=== PATIENT | female | born 1985 | race Caucasian/White ===

== ENCOUNTER 2019-04-03 21:56 | Emergency (ER) | payer OTHER, MEDICAID, SELFPAY ==
[2019-04-03 22:00] VITALS: BP 109/54; PULSE 78; RESP 15; TEMP 36.8; O2SAT 100; BMI 23.8
--- NOTE | 2019-04-03 22:20 | PC.NURSE ---
pt has menses at this time
[2019-04-03 22:23] LABS: Appearance Urine UA TURBID; Bilirubin Urine UA NEGATIVE (NEGATIVE); Color Urine UA RED; Glucose Urine UA NEGATIVE (Negative); Ketones Urine UA NEGATIVE (NEGATIVE); Leukocyte Esterase Urine UA 2+ (NEGATIVE); Nitrite Urine UA NEGATIVE (Negative); Occult Blood Urine UA 3+ (Negative); Protein Urine UA 2+ (Negative); Urobilinogen Urine UA 0.2 E.U./dL (0.2); pH Urine UA 6.5 (4.5-8.0)
--- NOTE | 2019-04-03 22:23 | ED_ITS ---
HPI - Female Genitourinary General Chief complaint: Urogenital-Female Stated complaint: LOWER RIGHT SIDED ABD PAIN Time Seen by Provider: 04/03/19 22:19 Source: patient Limitations: no limitations History of Present Illness HPI Narrative: The patient developed right lower abdominal pain about 6:00 p.m. tonight. She has urinary frequency. She denies dysuria. She had frequency about 5 days ago but symptoms resolved. She does not have frequent UTIs. She is currently on her menstrual cycle. is unlikely. She is status post right oophorectomy due to torsion at the age of 20. She has had 4 children since then, three by C-sections with a tubal ligation after the most recent C- section. She last ate at 6:00 p.m. without nausea vomiting. Her bowel movements have been normal. She has no history of kidney stones. Related Data Previous Rx's Medication Instructions Recorded sulfamethoxazole-trimethoprim 1 tab PO BID 7 Days #14 tab 04/04/19 [Bactrim DS] Allergies Allergy/AdvReac Type Severity Reaction Status Date / Time morphine Allergy Verified 04/03/19 22:06 Review of Systems Cardiovascular Denies chest pain Respiratory Denies cough Gastrointestinal Gastrointestinal: Reports abdominal pain, Denies diarrhea, Denies nausea and Denies vomiting Genitourinary Denies dysuria and Reports urinary urgency Comments: Menstrual bleeding Musculoskeletal Denies back pain Integumentary/Breasts Denies rash [facility] Medical History (Updated 04/04/19 @ 00:59 by Mandeep Walton MD) No active medical problems (Acute) Surgical History (Updated 04/04/19 @ 00:55 by Mandeep Walton MD) H/O tubal ligation (Acute) History of right oophorectomy (Acute) Previous section (Acute) Social History Smoking Status: Unknown if ever smoked Social History Smoking Status: Unknown if ever smoked Exam Initial Vital Signs Initial Vital Signs: Vital Signs Temperature 98.2 F 04/03/19 22:00 Pulse Rate 78 04/03/19 22:00 Respiratory Rate 15 04/03/19 22:00 Blood Pressure 109/54 L 04/03/19 22:00 Pulse Oximetry 100 04/03/19 22:00 Const General: cooperative and well developed Nutritional Appearance: well nourished Orientation: alert, awake and oriented x3 Resp Auscultation: clear to auscultation bilaterally Cardio Rhythm: regular rhythm Heart Sounds: S1 normal, S2 normal and no murmurs GI Inspection: normal to inspection Other: Palpable right lower quadrant tenderness with guarding but no rebound. Suprapubic tenderness with mild guarding, no rebound. Negative heel tap. Back/Spine/Pelvis Back: No CVA tenderness Skin General: no rashes or lesions noted Neuro General: alert, oriented x3, gait normal and no focal motor deficits Speech: speech normal Course Course Narrative: CT reveals no evidence of appendicitis, but does reveal findings consistent with cystitis. The is C/W hemorrhagic cystitis. Her pain is resolved with Toradol. She was given a dose of IV Rocephin prior to discharge. Orders Ordered: ED Orders 04/03/19 22:02 Urinalysis and Microscopic Stat Urine Culture Stat 04/03/19 22:54 CT abdomen pelvis w con Stat 04/03/19 23:16 Complete Blood Count AUTO DIFF Stat Comprehensive Metabolic Panel Stat Lipase Stat Discontinued Medications Sodium Chloride (Normal Saline 0.9%) 1,000 mls @ 250 mls/hr IV CONT NATHAN Last Infusion: 04/04/19 01:10 Dose: 0 mls/hr Admin: 04/03/19 23:12 Dose: 250 mls/hr Ceftriaxone Sodium/Dextrose (Rocephin) 1 gm in 50 mls @ 100 mls/hr IV NOW ONE Stop: 04/04/19 01:18 Last Infusion: 04/04/19 01:57 Dose: 0 mls/hr Admin: 04/04/19 01:09 Dose: 100 mls/hr Ketorolac Tromethamine (Toradol) 30 mg IV NOW ONE Stop: 04/03/19 22:54 Last Admin: 04/03/19 23:12 Dose: 30 mg Vital Signs - 8 hr 04/03/19 22:00 04/03/19 23:39 04/04/19 01:25 Temperature 98.2 F 98.1 F Pulse Rate 78 67 62 Respiratory Rate 15 15 20 Blood Pressure 109/54 L Blood Pressure [Left Arm] 87/53 L 89/54 L Pulse Oximetry 100 99 99 MDM - Female Genitourinary Lab Data Result diagrams: 04/03/19 23:16 04/03/19 23:16 Lab Results 04/03/19 04/03/19 04/03/19 Range/Units 22:02 23:16 23:16 WBC 9.9 (4.5-11.0) X10^3/uL RBC 4.38 (4.0-5.2) X10^6/uL Hgb 12.8 (12.0-16.0) g/dL Hct 38.5 (36-46) % MCV 87.7 (80-100) fL MCH 29.2 (26-34) PG MCHC 33.2 (30-36) % RDW 13.9 (11.6-14.8) % Plt Count 273 (150-400) X10^3/uL Neut % (Auto) 66.0 (50-75) % Lymph % (Auto) 19.0 L (25-40) % [place] % (Auto) 8.1 (3-14) % Eos % (Auto) 6.4 H (2-4) % Baso % (Auto) 0.5 (0-2) % Neut # (Auto) 6500 (5626-5932) /uL Lymph # (Auto) 1900 (2754-6831) /uL [place] # (Auto) 800 (0-900) /uL Eos # (Auto) 600 H (0-450) /uL Baso # (Auto) 0 (0-100) /uL Sodium 138 (137-145) mmol/L Potassium 4.0 (3.4-5.1) mmol/L Chloride 104 (98-107) mmol/L Carbon Dioxide 27 (22-32) mmol/L BUN 16 (7-17) mg/dL Creatinine 0.50 L (0.52-1.04) mg/dL Estimated GFR > 60.0 (>60) mL/min BUN/Creatinine Ratio 32.0 H (6-22) Glucose 98 (70-100) mg/dL Calcium 8.6 (8.4-10.2) mg/dL Total Bilirubin 0.3 (0.2-1.3) mg/dL AST 17 (14-36) IU/L ALT < 6 L (9-52) IU/L Alkaline Phosphatase 66 (38-126) U/L Total Protein 6.7 (6.3-8.2) g/dL Albumin 3.7 (3.5-5.0) g/dL Globulin 3.0 (1.7-4.1) g/dL Albumin/Globulin Ratio 1.2 (1.0-2.8) Lipase 59 (23-300) U/L Urine Color Red Urine Appearance Turbid Urine pH 6.5 (4.5-8.0) Ur Specific [place] 1.020 (1.000-1.035) Urine Protein 2+ H (Negative) Urine Glucose (UA) Negative (Negative) g/dL Urine Ketones Negative (NEGATIVE) Urine Occult Blood 3+ H (Negative) Urine Nitrate Negative (Negative) Urine Bilirubin Negative (NEGATIVE) Urine Urobilinogen 0.2 (0.2) E.U./dL Ur Leukocyte Esterase 2+ H (NEGATIVE) Urine RBC >100/hpf H (0-5/HPF) Urine WBC 5-10/hpf H (0-5/HPF) Ur Squamous Epith Cells 0-1 /hpf (0-5/HPF) Urine Bacteria Few (2-10) H (None) Ur Culture Indicated? Specimen cultured Point of Care Testing Test Results Negative Imaging Data CT scan - abdomen: Radiologist's impression: No evidence of appendicitis. Findings consistent with cystitis. Discharge Plan Departure Patient Disposition: Home Clinical Impression: Acute hemorrhagic cystitis Discharge Date/Time: 04/04/19 01:35 Interventions: ED Discharge Assessment Last Done: 04/04/19 01:34 Instructions: DI for Urinary Tract Infection (UTI) Activity Restrictions/Additional Instructions: Drink plenty of water, Assure you remain well hydrated. Bactrim DS 2 times daily as prescribed for 7 days. Return the ER if you develop increasing pain, vomiting, or fever. Prescriptions: New sulfamethoxazole-trimethoprim [Bactrim DS] 800-160 mg tablet 1 tab PO BID 7 Days Qty: 14 RF: 0
[2019-04-03 22:26] LABS: Bacteria Urine Few (2-10); Culture Indicated Urine Specimen Cultured; RBC Urine >100/HPF (0-5/HPF); Squamous Epithelial Cell Urine 0-1 /HPF (0-5/HPF); WBC Urine 5-10/HPF (0-5/HPF)
--- NOTE | 2019-04-03 22:54 | DI.CT.S_ITS ---
PROCEDURE: CT ABDOMEN PELVIS W CON INDICATIONS: Right lower quadrant pain, post right oophorectomy TECHNIQUE: After the administration of intravenous contrast, 5 mm thick sections acquired from the diaphragm to the symphysis. 5 mm coronal and sagittal reformats were acquired. For radiation dose reduction, the following was used: automated exposure control, adjustment of mA and/or kV according to patient size. COMPARISON: None. FINDINGS: Image quality: Excellent. ABDOMEN: Lung bases: Lung bases are clear. Heart size is normal. Solid organs: Liver is normal in size and enhancement. Gallbladder is decompressed but otherwise unremarkable. Biliary system is non dilated. Pancreas enhances normally. Spleen is normal in size and enhancement. No adrenal nodules. Kidneys demonstrate normal size and enhancement, without hydronephrosis. Peritoneum and bowel: Bowel loops demonstrate normal wall thickness and caliber. No free fluid or air. The visualized appendix appears normal. Nodes and vessels: No retroperitoneal or mesenteric adenopathy by size criteria. Aorta and inferior vena cava are normal in size. Miscellaneous: No ventral hernias. PELVIS: Genitourinary: Bladder wall is mildly thickened, possibly related to incomplete distention. No perivesicular stranding. Reproductive organs unremarkable as visualized. Miscellaneous: No inguinal hernias or adenopathy. Bones: No suspicious bony lesions. No acute vertebral body compression fractures. IMPRESSION: Mild circumferential thickening of the urinary bladder which may be in part due to incomplete distention. However, cystitis may have a similar appearance. Recommend clinical correlation. Otherwise, no acute abnormalities identified in the abdomen or pelvis. No significant discrepancy with the shift stacker radiology preliminary report. Dictated by: Isaias Harper M.D. on 04/04/2019 at 9:16 Approved by: Isaias Harper M.D. on 04/04/2019 at 9:22
[2019-04-03] MEDS: SODIUM CHLORIDE 0.9% 1,000 ML 250 ML IV (23:12)
[2019-04-03] MEDS: KETOROLAC 60 MG/2 ML VIAL 30 MG IV (23:12)
[2019-04-03 23:25] LABS: Add Manual Diff / Slide Review NO; Basophils Absolute Auto 0 /uL (0-100); Basophils Percent Auto 0.5 % (0-2); Eosinophils Absolute Auto 600 /uL (0-450); Eosinophils Percent Auto 6.4 % (2-4); Hematocrit 38.5 % (36-46); Hemoglobin 12.8 g/dL (12.0-16.0); Lymphocytes Absolute Auto 1900 /uL (1100-4500); Mean Corpuscular HGB Conc 33.2 % (30-36); Mean Corpuscular Hemoglobin 29.2 PG (26-34); Mean Corpuscular Volume 87.7 fL (80-100); Monocytes Absolute Auto 800 /uL (0-900); Monocytes Percent Auto 8.1 % (3-14); Neutrophils Absolute Auto 6500 /uL (1500-7000); Platelet Count 273 X10^3/uL (150-400); Red Blood Cell Count 4.38 X10^6/uL (4.0-5.2); Red Cell Distribution Width 13.9 % (11.6-14.8); White Blood Cell Count 9.9 X10^3/uL (4.5-11.0)
[2019-04-03 23:35] LABS: Albumin 3.7 g/dL (3.5-5.0); Albumin Globulin Ratio 1.2 (1.0-2.8); Alkaline Phosphatase 66 U/L (38-126); Aspartate Aminotransferase 17 IU/L (14-36); Bilirubin Total 0.3 mg/dL (0.2-1.3); Blood Urea Nitrogen 16 mg/dL (7-17); Calcium 8.6 mg/dL (8.4-10.2); Carbon Dioxide 27 mmol/L (22-32); Chloride 104 mmol/L (98-107); Estimated Glomerular Filt Rate > 60.0 mL/min (>60); Glucose 98 mg/dL (70-100); HEMOLYSIS 49 (0-50); Lipase 59 U/L (23-300); Sodium 138 mmol/L (137-145); Total Protein 6.7 g/dL (6.3-8.2)
[2019-04-03 23:39] VITALS: BP 87/53; PULSE 67; RESP 15; O2SAT 99
[2019-04-03 23:40] LABS: Alanine Aminotransferase < 6 IU/L (9-52)
[2019-04-04] MEDS: CEFTRIAXONE 1 GM/50 ML FROZ.PIGGY IV (01:09)
[2019-04-04 01:25] VITALS: BP 89/54; PULSE 62; RESP 20; TEMP 36.7; O2SAT 99
== END 2019-04-04 01:35 | disposition home or self-care (01) ==
PROVIDERS: Emergency Provider Emergency Medicine
DX: N30.01 Acute cystitis with hematuria (principal)
CPT/HCPCS: 36591; 74177; 80053; 81001; 81025; 83690; 85025; 87086; 96361; 96365; 96375; 99283; 99284; J1885; Q9967